=== PATIENT | male | born 1945 | race Caucasian/White ===

== ENCOUNTER → 2020-02-18 | Outpatient (CLI) | payer MEDICARE, OTHER ==
[~2020-02-18] MED LIST: LISI10; LISI10 PO; LISI5 PO; OMEP10ER PO; TRAM50 PO
== END | disposition home or self-care (01) ==
LOC: LAB SHORT 10:39 → LAB EV 10:39
DX: Z20.9 Contact with and (suspected) exposure to unspecified communicable disease (principal); Z20.828 Contact with and (suspected) exposure to other viral communicable diseases
CPT/HCPCS: U0003

== ENCOUNTER 2021-02-14 07:45 | Day surgery (SDC) | payer MEDICARE, OTHER ==
[~2021-02-14] VITALS: Ht 175.3 cm; Wt 161.6 kg
[~2021-02-14 07:45] MED LIST changes: +MOBIC15 MG PO; +SERT100 PO; +TAMS.4ER PO; +Voltaren100 GM TOP
== END 2021-02-14 10:02 | disposition home or self-care (01) ==
LOC: ORSCSDS 07:45
PROVIDERS: Internal Medicine Gastroenterology
PROC: 0DJD8ZZ Inspection of Lower Intestinal Tract, Via Natural or Artificial Opening Endoscopic (ICD-10-PCS; principal; 2021-02-14 09:00)
DX: Z12.11 Encounter for screening for malignant neoplasm of colon (principal); Z86.010 Personal history of colon polyps; K57.30 Diverticulosis of large intestine without perforation or abscess without bleeding; K21.9 Gastro-esophageal reflux disease without esophagitis; Z79.899 Other long term (current) drug therapy
CPT/HCPCS: J2405; J2704; J7120

== ENCOUNTER 2025-04-18 03:56 | Day surgery (SDC) | payer MEDICARE ==
[2025-04-18] MEDS ORDERED: Cosyntropin 0.25 MG / ML 1ML Vial IV SCH (06:00)
[2025-04-18 08:30] VITALS: BP 127/93
[2025-04-18 08:43] VITALS: BP 143/90
[2025-04-18] MEDS ORDERED: ESCI5 (09:10)
[2025-04-18] MEDS ORDERED: VITAMIN B-121000 MCG PO (09:10)
[2025-04-18] MEDS ORDERED: Rapaflo4 MG PO (09:21)
[2025-04-18] MEDS ORDERED: ONDA4 PO (09:22)
--- NOTE | 2025-04-18 17:26 | NUR ---
LAB RESULTS FAXED TO DR LYON PER PT REQUEST
== END 2025-04-18 10:00 | disposition home or self-care (01) ==
LOC: ATC 03:56
DX: C45.0 Mesothelioma of pleura (principal); R94.6 Abnormal results of thyroid function studies; R97.20 Elevated prostate specific antigen [PSA]; Z77.090 Contact with and (suspected) exposure to asbestos; Z79.899 Other long term (current) drug therapy; Z88.5 Allergy status to narcotic agent
CPT/HCPCS: 80400; 82533; 96374; J0834